=== PATIENT | male | born 1955 | race American Indian/Alaskan Native ===

== ENCOUNTER 2019-01-28 01:34 | Emergency (ER) | payer MEDICARE, OTHER ==
[2019-01-28] MEDS ORDERED: HYDROGEN PEROXIDE ONE (01:47)
[2019-01-28 01:50] VITALS: BP 145/67
--- NOTE | 2019-01-28 02:53 | XRay Report ---
RIGHT FOREARM 2 VIEWS INDICATION: right forearm pain and swelling S/P fall. COMPARISON: No relevant prior imaging study available. FINDINGS: There is an essentially nondisplaced oblique fracture through the distal right ulnar metaphysis. No a dditional fractures are identified. There is mild distal forearm soft tissue swelling. IMPRESSION: 1. Nondisplaced distal ulnar metaphyseal fracture. Signer Name: Jose Conde MD Signed: 01/28/2019 2:49 AM Workstation Name: [id number]
[2019-01-28] MEDS ORDERED: BACTROBAN 2% TP STA (03:26)
--- NOTE | 2019-01-28 05:30 | Emergency Department Report ---
ED Upper Extremity Inj HPI - General Chief Complaint: Fall Stated Complaint: FALL Time Seen by Provider: 01/28/19 05:15 Source: patient Mode of arrival: Ambulatory Limitations: No Limitations - History of Present Illness Initial Comments: Was walking on the road and his left shoe his shoe got caught on an object on the road. He tripped, falling forward, landing on asphalt scraping his knees and legs and fell onto his right arm trying to break the fall resulting in pain and swelling and decreased range of motion. Reports no head trauma or loss of c onsciousness. No abdominal pain, no hemoptysis, no hematemesis Complaint: Injury to:: forearm, wrist -: Sudden Other Extremity Injury: Wrist: Right Other Injuries: none Handedness: right Place: home Improves With: none, immobilization Worsens With: movement of extremity Associated Symptoms: denies other symptoms - Related Data Home Medications Medication Instructions Recorded Confirmed Last Taken Vit B Complx C/Folic Acid/Zinc 1 tab PO DAILY 11/07/15 11/07/15 11/05/15 [Dialyvite 800-Zinc 15 mg Tab] 1 tab Previous Rx's Medication Instructions Recorded Last Taken Type Aspirin [Aspirin BABY CHEW TAB] 81 mg PO QDAY #30 tab.chew 05/05/14 10/31/15 Rx 81mg Metoprolol [Lopressor TAB] 50 mg PO BID #60 tablet 05/05/14 11/07/15 08:55 Rx NIFEdipine XL [Procardia Xl] 90 mg PO QDAY #30 tablet 05/05/14 11/07/15 08:55 Rx 90mg Simvastatin (Nf) [Zocor TAB] 20 mg PO QHS #30 tablet 05/05/14 11/05/15 Rx 20mg hydrALAZINE [Apresoline TAB] 100 mg PO TID #90 tab 05/05/14 11/07/15 08:55 Rx 90mg Acetaminophen/Codeine [Tylenol 1 tab PO Q6H PRN #20 tab 01/28/19 Unknown Rx /Codeine # 3 tab] Chlorhexidine Gluconate [Hibiclens] 10 ml TP BID #240 liquid 01/28/19 Unknown Rx Mupirocin [Bactroban 2%] 15 applic TP TID #15 gm 01/28/19 Unknown Rx Allergies Allergy/AdvReac Type Severity Reaction Status Date / Time No Known Allergies Allergy Verified 11/07/15 09:13 ED Review of Systems ROS: Stated complaint: FALL Other details as noted in HPI Comment: All other systems reviewed and negative ED Past Medical Hx - Past Medical History Previous Medical History?: Yes Hx Hypertension: Yes Hx Heart Attack/AMI: (elevated troponin) Hx Congestive Heart Failure: Yes Hx Liver Disease: (Hep B) Hx Renal Disease: Yes (CKD, 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 renal failure. 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 - Social History Smoking Status: Current Every Day Smoker Substance Use Type: Cocaine - Medications Home Medications: Home Medications Medication Instructions Recorded Confirmed Last Taken Type Aspirin [Aspirin BABY CHEW TAB] 81 mg PO QDAY #30 tab.chew 05/05/14 11/07/15 10/31/15 Rx 81mg Metoprolol [Lopressor TAB] 50 mg PO BID #60 tablet 05/05/14 11/07/15 11/07/15 08:55 Rx NIFEdipine XL [Procardia Xl] 90 mg PO QDAY #30 tablet 05/05/14 11/07/15 11/07/15 08:55 Rx 90mg Simvastatin (Nf) [Zocor TAB] 20 mg PO QHS #30 tablet 05/05/14 11/07/15 11/05/15 Rx 20mg hydrALAZINE [Apresoline TAB] 100 mg PO TID #90 tab 05/05/14 11/07/15 11/07/15 08:55 Rx 90mg Vit B Complx C/Folic Acid/Zinc 1 tab PO DAILY 11/07/15 11/07/15 11/05/15 History [Dialyvite 800-Zinc 15 mg Tab] 1 tab Acetaminophen/Codeine [Tylenol 1 tab PO Q6H PRN #20 tab 01/28/19 Unknown Rx /Codeine # 3 tab] Chlorhexidine Gluconate [Hibiclens] 10 ml TP BID #240 liquid 01/28/19 Unknown Rx Mupirocin [Bactroban 2%] 15 applic TP TID #15 gm 01/28/19 Unknown Rx ED Physical Exam - General Limitations: No Limitations General appearance: alert, in no apparent distress - Head Head exam: Present: atraumatic, normocephalic - Eye Eye exam: Present: normal appearance - ENT ENT exam: Present: mucous membranes moist - Neck Neck exam: Present: normal inspection - Respiratory Respiratory exam: Present: normal lung sounds bilaterally. Absent: respiratory distress - Cardiovascular Cardiovascular Exam: Present: regular rate, normal rhythm. Absent: systolic murmur, diastolic murmur, rubs, gallop - GI/Abdominal GI/Abdominal exam: Present: soft, normal bowel sounds - Rectal Rectal exam: Present: deferred - Extremities Exam Extremities exam: Present: normal inspection - Expanded Upper Extremity Exam Right Shoulder Exam: Present: normal inspection, full ROM Elbow exam: Present: normal inspection, full ROM Forearm Wrist exam: Present: tenderness (tenderness over the ulnar process region with palpation. Pain with supination and pronation. Pulses 2+. Capillary refills are brisk. No abrasion noted. 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 Absent: tenderness over anatomical snuff box, pain with axial thumb loading Hand Wrist exam: Present: tenderness - Expanded Lower Extremity Exam Right 1 - Area of abrasions noted. No active bleeding. No bruit noted. Strength is normal. Range of motion - Back Exam Back exam: Present: normal inspection - Neurological Exam Neurological exam: Present: alert, oriented X3, CN II-XII intact, normal gait. Absent: abnormal gait, motor sensory deficit, reflexes normal - Psychiatric Psychiatric exam: Present: normal affect, normal mood. Absent: depressed, anxious, flat affect, manic, suicidal ideation - Skin Skin exam: Present: warm, dry, intact, normal color. Absent: rash, cyanosis, diaphoretic, erythema, urticaria, petechiae ED Course Vital Signs 01/28/19 01:44 Temperature 98.2 F Pulse Rate 76 Respiratory 20 Rate Blood Pressure 145/67 O2 Sat by Pulse 95 Oximetry - Procedure Description Procedures done: Fracture right ulnar side for last and slight vascular intact. OCL was placed by the EMT reevaluated this author Critical care attestation.: If time is entered above; I have spent that time in minutes in the direct care of this critically ill patient, excluding procedure time. ED Disposition Clinical Impression: Ulna distal fracture, Multiple abrasions Disposition: TO HOME OR SELFCARE Is pt being admited?: No Does the pt Need Aspirin: No Condition: Stable Instructions: Wrist Fracture in Adults (ED), Abrasion (ED) Referrals: REYNA HUNT MD [Staff Physician] - 3-5 Days
== END 2019-01-28 05:55 | disposition home or self-care (01) ==
LOC: ED 01:34
DX: S59.001A Unspecified physeal fracture of lower end of ulna, right arm, initial encounter for closed fracture (principal); M25.562 Pain in left knee; F17.200 Nicotine dependence, unspecified, uncomplicated; F14.10 Cocaine abuse, uncomplicated; I13.0 Hypertensive heart and chronic kidney disease with heart failure and stage 1 through stage 4 chronic kidney disease, or unspecified chronic kidney disease; N18.9 Chronic kidney disease, unspecified; I50.9 Heart failure, unspecified; W01.0XXA Fall on same level from slipping, tripping and stumbling without subsequent striking against object, initial encounter; Y93.89 Activity, other specified; Y92.89 Other specified places as the place of occurrence of the external cause; Y99.8 Other external cause status